=== PATIENT | female | born 1995 | race Caucasian/White ===

== ENCOUNTER 2016-07-21 10:43 | Inpatient (IN) | payer MEDICAID ==
[2016-07-21] VITALS (8 sets, daily range): BP systolic 108–129; RESP 18–20; TEMP 98.9; Ht 162.6 cm; Wt 63.0 kg
[~2016-07-21] VITALS: Ht 162.6 cm; Wt 63.0 kg
[~2016-07-21 10:43] MED LIST: BUPIVACAINE 0.5% PF 10ML EPIDURAL ONE
[2016-07-21] MEDS ORDERED: OXYTOCIN 15 UNITS/250 ML NS 250 ML IV SCH ×3 (11:10→18:35)
[2016-07-21] MEDS ORDERED: ONDANSETRON 4 MG VIAL IV PRN (11:10)
[2016-07-21] MEDS ORDERED: LIDOCAINE 1% BUFFERED 1 ML SYR INTRADERM PRN (11:10)
[2016-07-21] MEDS ORDERED: LACT RINGERS 1,000 ML IV SCH (11:10)
[2016-07-21] MEDS ORDERED: PHARMACY TO DOSE GENTAMICIN IV PRN (11:10)
[2016-07-21] MEDS ORDERED: TERBUTALINE 1 MG/ML VIAL SUBQ PRN (11:10)
[2016-07-21] MEDS ORDERED: LIDOCAINE 1% 30 ML PF INFILTRATE ONE (11:10)
[2016-07-21] MEDS ORDERED: PROMETHAZINE 25 MG/ML VIAL IV PRN (11:10)
[2016-07-21] MEDS ORDERED: FAMOTIDINE 20 MG TAB PO PRN (11:10)
[2016-07-21] MEDS ORDERED: ACETAMINOPHEN 325 MG TAB PO PRN (11:10)
[2016-07-21] MEDS ORDERED: CLINDAMYCIN 900 MG in DEXTROSE 5% 50 ML IV PRN (11:10)
[2016-07-21] MEDS ORDERED: ALU/MAG/SIM 30 ML UDC PO PRN (11:10)
[2016-07-21] MEDS ORDERED: FAMOTIDINE 20 MG INJ IV PRN (11:10)
[2016-07-21] MEDS ORDERED: METOCLOPRAMIDE 10 MG/2 ML VIAL IV PUSH PRN (11:10)
[2016-07-21] MEDS ORDERED: FENTANYL 100 MCG/2 ML AMP ONE (11:46)
[2016-07-21] MEDS ORDERED: ROPIV/FENT 0.2%-2MCG/ML 100 ML EPIDURAL ONE (11:46)
[2016-07-21] MEDS ORDERED: GENTAMICIN 320 MG in SODIUM CHLORIDE 0.9% 100 ML IV PRN (11:55)
[2016-07-21] MEDS ORDERED: LACT RINGERS 500 ML IV PRN (12:20)
[2016-07-21] MEDS ORDERED: LACT RINGERS 500 ML IV ONE (12:20)
[2016-07-21] MEDS ORDERED: SODIUM CHLORIDE 0.9% 500 ML IV PRN (12:20)
[2016-07-21] MEDS ORDERED: ROPIV/FENT 0.2%-2MCG/ML 100 ML EPIDURAL SCH (12:20)
[2016-07-21] MEDS ORDERED: FENTANYL 100 MCG/2 ML AMP EPIDURAL ONE (12:20)
[2016-07-21] MEDS ORDERED: DERMOPLAST SPRAY TOPICAL PRN (18:35)
[2016-07-21] MEDS ORDERED: MAG HYDROX 30 ML UDC PO PRN (18:35)
[2016-07-21] MEDS ORDERED: TDaP 0.5 ML VIAL IM.VACC ONE (18:35)
[2016-07-21] MEDS ORDERED: SALINE FLUSH 10 ML FLUSH PRN (18:35)
[2016-07-21] MEDS ORDERED: MEASLES,MUMPS,RUBELLA VAC SUBQ.VACC ONE (18:35)
[2016-07-21] MEDS: Ibuprofen 600 MG TAB PO SCH (19:23)
[2016-07-21] MEDS: ASTRINGENT MED PADS 40'S TOPICAL PRN (19:24)
[2016-07-21] MEDS ORDERED: **ONLY ANESTEHSIA MAY ORDER OPIATES WHILE ON EPIDURAL XX SCH (20:00)
[2016-07-22] MEDS: Ibuprofen 600 MG TAB PO SCH ×5 (00:03→23:28)
[2016-07-22 02:26] VITALS: BP_SYST 124; RESP 20; TEMP 98.3
[2016-07-22 06:17] VITALS: BP_SYST 118; RESP 18; TEMP 98.4
[2016-07-22] MEDS: DOCUSATE SOD 100 MG CAP PO SCH (08:10)
[2016-07-22 09:29] VITALS: BP_SYST 114; RESP 20; TEMP 98.1
[2016-07-22 13:12] VITALS: BP_SYST 110; RESP 20; TEMP 97.6
[2016-07-22 17:23] VITALS: BP_SYST 113; RESP 20; TEMP 98.4
[2016-07-23 05:44] VITALS: BP_SYST 110; RESP 16; TEMP 98
[2016-07-23] MEDS: Ibuprofen 600 MG TAB PO SCH ×3 (05:48→17:37)
[2016-07-23] MEDS: DOCUSATE SOD 100 MG CAP PO SCH (08:27)
[2016-07-23 10:23] VITALS: BP_SYST 112; RESP 16; TEMP 98.2
[2016-07-23 16:44] VITALS: BP_SYST 114; RESP 18; TEMP 98.5
[2016-07-23 17:06] VITALS: BP_SYST 114; RESP 18; TEMP 98.5
[2016-07-23] MEDS: ASTRINGENT MED PADS 40'S TOPICAL PRN (17:37)
== END 2016-07-23 18:00 | disposition home or self-care (01) | DRG 775 ==
LOC: LDOP 10:43 → LD 10:59 → OB 21:11
PROVIDERS: ADMIT Obstetrics & Gynecology; ATTEND Obstetrics & Gynecology
PROC: 10E0XZZ Delivery of Products of Conception, External Approach (ICD-10-PCS; principal; 2016-07-21)
PROC: 0HQ9XZZ Repair Perineum Skin, External Approach (ICD-10-PCS; 2016-07-21)
DX: O70.0 First degree perineal laceration during delivery (principal); Z37.0 Single live birth; Z3A.40 40 weeks gestation of pregnancy
CPT/HCPCS: 82803; 82947; 85014; 85018; 85025; 86850; 86900; 86901